=== PATIENT | female | born 1970 | race Caucasian/White ===

== ENCOUNTER 2016-09-18 12:21 | Emergency (ER) | payer SELFPAY ==
[~2016-09-18] VITALS: Ht 152.4 cm; Wt 63.5 kg
[2016-09-18 12:35] VITALS: BP 103/74
--- NOTE | 2016-09-18 14:31 | NUR ---
PT TO BED 8 AT THIS TIME.
--- NOTE | 2016-09-18 14:46 | NUR ---
PATIENT PRESENTS TO ED DUE TO FALL X1 DAY. C/O RIGHT KNEE PAIN . DENIES N/V/D; SKIN IS PINK/WARM/DRY; AAOX4 WITH EVEN AND STEADY GAIT; LUNGS CLEAR BL; HR EVEN AND REGULAR; PT DENIES ANY FEVER, CP, SOB, OR COUGH AT THIS TIME; PATIENT STATES PAIN OF 9/10 AT THIS TIME; VSS; PATIENT POSITIONED FOR COMFORT; HOB ELEVATED; BEDRAILS UP X2; BED DOWN. ER MD WILL BE NOTIFIED.
[2016-09-18] MEDS ORDERED: HYDROcodone/APAP 5/325 MG 1 TAB TAB PO ONE (15:10)
--- NOTE | 2016-09-18 15:12 | NUR ---
MANAGING CONSULTANT CLINICAL PROFESSOR AT BEDSIDE.
[2016-09-18 15:45] VITALS: BP 110/71
== END 2016-09-18 15:44 | disposition home or self-care (01) ==
LOC: MED 12:21
DX: S83.421A Sprain of lateral collateral ligament of right knee, initial encounter (principal); W01.0XXA Fall on same level from slipping, tripping and stumbling without subsequent striking against object, initial encounter; Y93.01 Activity, walking, marching and hiking; Y92.89 Other specified places as the place of occurrence of the external cause; Y99.8 Other external cause status
CPT/HCPCS: 29515; 73562; 99284